=== PATIENT | female | born 1980 | race Caucasian/White ===

== ENCOUNTER 2016-08-26 00:48 | Outpatient (CLI) | payer BC ==
[~2016-08-26] VITALS: Ht 175.3 cm; Wt 137.7 kg
[~2016-08-26 00:48] MED LIST: MOTRIN 200200 MG/TAB PO; NORCO 325 MG-7.1 TAB PO; PHENTERMINE15 MG PO; RITE AID KRILL500 MG PO; TYLENOL EXTRA500 M1 PO
[2016-08-26] MEDS ORDERED: TYLENOL 325MG325 MG PO (01:11)
[2016-08-26] MEDS ORDERED: NOVOLIN N100 U/ML SQ ×2 (01:13→01:14)
[2016-08-26] MEDS ORDERED: NOVOLIN R100 U/ML ×2 (01:15→01:16)
[2016-08-26 01:30] VITALS: BP 138/82; PULSE 88
[2016-08-26 02:30] VITALS: BP 139/77; PULSE 93
[2016-08-26 03:00] VITALS: BP 147/79; PULSE 94; TEMP 98.2
[2016-08-26 03:30] VITALS: BP 159/85; PULSE 96
== END 2016-08-26 03:53 | disposition short-term general hospital (02) ==
LOC: LDRO 00:48
DX: O26.892 Other specified pregnancy related conditions, second trimester (principal); R10.84 Generalized abdominal pain; Z3A.26 26 weeks gestation of pregnancy
CPT/HCPCS: J0702; J2540; J3475; J7120